=== PATIENT | female | born 1970 | race Caucasian/White ===

== ENCOUNTER 2018-08-28 07:05 | Emergency (ER) | payer OTHER ==
[2018-08-28 07:35] VITALS: BP 123/57
--- NOTE | 2018-08-28 07:50 | UC ---
Respiratory Complaint HPI - HPI Summary HPI Summary: cough x 6 days cough is dry , no sputum chest congestion , runny nose, sinus pressure no sore throat, + wheezing, chest tightness, sob , no fever, + chills and fatigue - History of Current Complaint Chief Complaint: UCRespiratory Stated Complaint: COUGH,SINUSES,CONGESTION,FEVER Time Seen by Provider: 08/28/18 07:27 Hx Obtained From: Patient Hx Last Menstrual Period: 08/08/12 ?: No Onset/Duration: Gradual Onset, Lasting Days - 6 Timing: Constant Severity Initially: Moderate Severity Currently: Moderate Pain Intensity: 7 Character: Cough: Nonproductive Aggravating Factors: Exertion, Deep Breaths Alleviating Factors: Nothing Associated Signs And Symptoms: Positive: Dyspnea, Chills, Wheezing, URI, Nasal Congestion. Negative: Fever, Pleuritic Chest Pain, Hemoptysis, Dizziness, Calf Pain, Calf Swelling - Allergies/Home Medications Allergies/Adverse Reactions: Allergies Allergy/AdvReac Type Severity Reaction Status Date / Time erythromycin base AdvReac GI Upset Verified 08/28/18 07:45 Home Medications: Home Medications Ibuprofen TAB* [Advil TAB*] 600 mg PO Q8H PRN 08/28/18 [History Confirmed ] SUMAtriptan TAB* [Imitrex TAB*] 25 mg PO SEE INSTRUCTIONS PRN 08/28/18 [History Confirmed 08/28/18] Vortioxetine Hydrobromide [Brintellix] 20 mg PO DAILY 08/28/18 [History Confirmed 08/28/18] PMH/Surg Hx/FS Hx/Imm Hx - Additional Past Medical History Additional PMH: 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 - Surgical History Surgical History: None Surgery Procedure, Year, and Place: hyster 2018 - Family History Known Family History: Negative: Diabetes - Social History Alcohol Use: None Substance Use Type: None Smoking Status (MU): Never Smoked Tobacco Review of Systems All Other Systems Reviewed And Are Negative: Yes Constitutional: Positive: Chills, Fatigue Skin: Positive: Negative Eyes: Positive: Negative ENT: Positive: Nasal Discharge, Sinus Congestion Respiratory: Positive: Shortness Of Breath, Cough Cardiovascular: Positive: Negative Is Patient Immunocompromised?: No Physical Exam Triage Information Reviewed: Yes Appearance: Well-Appearing, No Pain Distress, Well-Nourished Vital Signs: Initial Vital Signs Temp 98.6 F 08/28/18 07:28 Pulse 69 08/28/18 07:28 Resp 20 08/28/18 07:28 BP 123/57 08/28/18 07:28 Pulse Ox 98 08/28/18 07:28 Vital Signs Reviewed: Yes Eye Exam: Normal Eyes: Positive: Conjunctiva Clear ENT: Positive: Normal ENT inspection, Hearing grossly normal, Pharynx normal, Nasal drainage, TMs normal. Negative: Sinus tenderness Neck exam: Normal Neck: Positive: Supple, Nontender, No Lymphadenopathy Respiratory: Positive: Chest non-tender, No respiratory distress, Wheezing Cardiovascular: Positive: RRR, No Murmur, Pulses Normal Skin Exam: Normal Diagnostics - Radiology No standard instances Radiology Interpretation Completed By: Radiologist Summary of Radiographic Findings: chest xray : IMPRESSION: #. No evidence for pneumonia. No evidence for acute intrathoracic disease. Respiratory Course/Dx - Differential Dx/Diagnosis Provider Diagnosis: Bronchitis Discharge - Sign-Out/Discharge Documenting (check all that apply): Patient Departure All imaging exams completed and their final reports reviewed: Yes - Discharge Plan Condition: Stable Disposition: HOME Prescriptions: Albuterol HFA INHALER* [Ventolin HFA Inhaler*] 2 puff INH Q6H PRN #1 mdi PRN Reason: Wheezing predniSONE [Prednisone 20 MG TAB] 20 mg PO BID #10 tablet Patient Education Materials: Acute Bronchitis (ED) Referrals: Lindsay Monaco MD [Primary Care Provider] - 5 Days - Billing Disposition and Condition Condition: STABLE Disposition: Home
[2018-08-28] MEDS ORDERED: Albuterol 2.5 MG/3 ML NEB.SOL* (0.083%) INH ONE (07:53)
== END 2018-08-28 08:24 | disposition home or self-care (01) ==
LOC: UCCORT 07:05
DX: J40 Bronchitis, not specified as acute or chronic (principal); Z88.1 Allergy status to other antibiotic agents
CPT/HCPCS: 71046; 99212; G0463